=== PATIENT | female | born 1995 | race Caucasian/White ===

== ENCOUNTER 2018-06-01 22:48 | Emergency (ER) | END 2018-06-02 02:17 | disposition home or self-care (01) ==

== ENCOUNTER 2018-09-25 14:04 | Inpatient (IN) | payer OTHER ==
[~2018-09-25] VITALS: Ht 162.6 cm; Wt 84.6 kg
[2018-09-25] VITALS (25 sets, daily range): BP systolic 106–150; BP diastolic 38–90; PULSE 54–81; RESP 12–24; Ht 162.6 cm; Wt 84.6 kg
[2018-09-25] MEDS: LACTATED RINGER'S 1,000 ML IV SCH ×2 (06:00→18:21)
[2018-09-25] MEDS: SOD CHLORIDE 0.9% 1,000 ML IV SCH (06:00)
[~2018-09-25 14:04] MED LIST: ACET500C5 PO; ALBUTEROL INHALER; CEFAZOLIN 2 GM/50 ML (PMX) 50 ML (FOR WT < 120 KG) IVPB ONE; CEFAZOLIN 2 GM/50 ML (PMX) 50 ML IVPB ONE; CEPH-443 PO; GLYCOPYRROLATE 0.4 MG INJ ONE; IBUP800T48 PO; NEOSTIGMINE 10 MG INJ ONE; ONDA4TAB8 PO
[2018-09-25] MEDS ORDERED: ROCURONIUM 50 MG INJ ONE ×2 (14:10→16:48)
[2018-09-25] MEDS ORDERED: MIDAZOLAM 1 MG/ML 2 ML INJ ONE ×2 (14:10→16:48)
[2018-09-25] MEDS ORDERED: PROPOFOL 0 ML ONE (14:10)
[2018-09-25] MEDS ORDERED: FENTAnyl 50 MCG/ML VIAL ONE ×2 (14:10→16:51)
[2018-09-25] MEDS ORDERED: NORG1TAB15 PO (14:31)
--- NOTE | 2018-09-25 14:49 | PREAC ---
Date/Time of Note Date/Time of Note DATE: 09/25/18 TIME: 14:45 Anesthesia Eval and Record Evaluation Time Pre-Procedure Interview DATE: 09/25/18 TIME: 14:45 Age 23 Sex female NPO: 8 hrs Preoperative diagnosis Ectopic Planned procedure Exploratory Laparotomy and possible Salpingectomy right or left Past Medical History Past Medical History: Includes : : (2), Para: (1), Gestational age: Surgery & Anesthesia Issues No known issue Meds Anticoagulation: No Beta Franc within 24 hr: No Reason Beta Franc not given: Pt. not on B-Franc Reported Medications Norgestimate-Ethinyl Estradiol (Tri-Sprintec Tablet) 1 Each Tablet, 1 EACH PO DAILY, TAB 09/25/18 Discontinued Reported Medications [Albuterol Inhaler] No Conflict Check 11/14/10 Discontinued Scripts Ondansetron Hcl* (Zofran*) 4 Mg Tablet, 4 MG PO Q8H PRN for NAUSEA AND/OR VOMITING, #30 TAB Prov:ODILIAILAGUIDOULISESAR F 06/02/18 Acetaminophen* (Tylophen*) 500 Mg Capsule, 1 CAP PO Q6H PRN for PAIN AND OR ELEVATED TEMP, #20 CAP Prov:PASILABANULISESAR F 06/02/18 Ibuprofen* (Motrin*) 800 Mg Tab, 800 MG PO Q6H PRN for PAIN AND OR ELEVATED TEMP, #30 TAB Prov:ODILIAILABANULISESAR F 06/02/18 Cephalexin* (Keflex*) 500 Mg Capsule, 500 MG PO TID for 7 Days, CAP Prov:PASILABANULISESAR F 06/02/18 Current Medications Lactated Ringer's 1,000 ml @ 25 mls/hr Q24H IV ; Start 09/25/18 at 06:00 Sodium Chloride 1,000 ml @ 25 mls/hr Q24H IV ; Start 09/25/18 at 06:00 Meds reviewed: Yes Allergies Coded Allergies: No Known Allergies (Verified Allergy, Mild, 09/25/18) Allergies Reviewed: Yes Labs/Studies Labs Reviewed: Reviewed by anesthesiologist test: Positive Studies: ECG (n/a), CXR (n/a) Pre-procedure Exam Airway: Adequate mouth opening, Adequate thyromental dist Mallampati: Mallampati II Teeth: Normal Lung: Normal Heart: Normal ASA Physical Status ASA physical status: 2 Emergency: E Planned Anesthetic General/MAC: ETT Nerve block: TAP (bilateral) Planned Pain Management Single shot nerve block, Parenteral pain med Pre-operative Attestations Prior to commencing anesthesia and surgery, the patient was re-evaluated, there was verification of: *The patient's identity *The results of appropriate recent lab work and preoperative vital signs *The above evaluation not changing prior to induction *Anesthetic plan, risk benefits, alternative and complications discussed with patient/family; questions answered; patient/family understands, accepts and wishes to proceed. TATO MILES MD Sep 25, 2018 14:49
[2018-09-25] MEDS ORDERED: BUPIVACAINE 0.5%/EPI (SDV) 30 ML INJ ONE (15:51)
--- NOTE | 2018-09-25 15:59 | PREAC ---
Date/Time of Note Date/Time of Note DATE: 09/25/18 TIME: 15:55 Anesthesia Eval and Record Evaluation Time Pre-Procedure Interview DATE: 09/25/18 TIME: 15:55 Age 23 Sex female NPO: 8 hrs Preoperative diagnosis dermoid cyst Planned procedure LAPAROSCOPIC OVARIAN RIGHT CYSTECTOMY Past Medical History Past Medical History: Includes Pulm: Smoking Hx (2 days ago) GI: Obesity Recreational drugs: Marijuana (daily) Surgery & Anesthesia Issues No known issue Meds Anticoagulation: No Beta Franc within 24 hr: No Reason Beta Franc not given: Pt. not on B-Franc Reported Medications Norgestimate-Ethinyl Estradiol (Tri-Sprintec Tablet) 1 Each Tablet, 1 EACH PO DAILY, TAB 09/25/18 Discontinued Reported Medications [Albuterol Inhaler] No Conflict Check 11/14/10 Discontinued Scripts Ondansetron Hcl* (Zofran*) 4 Mg Tablet, 4 MG PO Q8H PRN for NAUSEA AND/OR VOMITING, #30 TAB Prov:ODILIAILABANULISESAR F 06/02/18 Acetaminophen* (Tylophen*) 500 Mg Capsule, 1 CAP PO Q6H PRN for PAIN AND OR ELEVATED TEMP, #20 CAP Prov:PASILABANULISESAR F 06/02/18 Ibuprofen* (Motrin*) 800 Mg Tab, 800 MG PO Q6H PRN for PAIN AND OR ELEVATED TEMP, #30 TAB Prov:PASILABAN,ULISESAR F 06/02/18 Cephalexin* (Keflex*) 500 Mg Capsule, 500 MG PO TID for 7 Days, CAP Prov:PASILABANULISESAR F 06/02/18 Current Medications Lactated Ringer's 1,000 ml @ 25 mls/hr Q24H IV ; Start 09/25/18 at 06:00 Sodium Chloride 1,000 ml @ 25 mls/hr Q24H IV ; Start 09/25/18 at 06:00 Meds reviewed: Yes Allergies Coded Allergies: No Known Allergies (Verified Allergy, Mild, 09/25/18) Allergies Reviewed: Yes Labs/Studies Labs Reviewed: Reviewed by anesthesiologist Result Diagram: 09/25/18 1442 09/25/18 1442 Laboratory Tests 09/25/18 14:42 test: Negative Pre-procedure Exam Last vitals Vital Signs Date Temp Pulse Resp B/P (MAP) Pulse Ox O2 O2 Flow FiO2 Time Delivery Rate 09/25/18 97.7 74 16 129/59 95 Room Air 15:07 (82) Airway: Adequate mouth opening Mallampati: Mallampati II Teeth: Normal Lung: Normal Heart: Normal ASA Physical Status ASA physical status: 2 Emergency: None Planned Anesthetic General/MAC: ETT Pre-operative Attestations Prior to commencing anesthesia and surgery, the patient was re-evaluated, there was verification of: *The patient's identity *The results of appropriate recent lab work and preoperative vital signs *The above evaluation not changing prior to induction *Anesthetic plan, risk benefits, alternative and complications discussed with patient/family; questions answered; patient/family understands, accepts and wishes to proceed. MEDARDO MC Sep 25, 2018 15:59
--- NOTE | 2018-09-25 16:07 | HP ---
Date/Time of Note Date/Time of Note DATE: 09/25/18 TIME: 16:04 Assessment/Plan VTE Prophylaxis Pharmacological prophylaxis: NA/contraindicated Pharm contraindication: low risk/ambulating Lines/Catheters [facility] Saline Lock Assessment/Plan Assessment/Plan 4.2 cm right ovarian cyst which was diagnosed to be dermoid by MRI and CT scan Patient is going to have laparotomy and removal of the right ovarian cyst Result Diagram: 09/25/18 1442 09/25/18 1442 Results 24hrs Laboratory Tests Test 09/25/18 14:42 White Blood Count 8.6 # Red Blood Count 4.49 Hemoglobin 13.6 Hematocrit 40.9 Mean Corpuscular Volume 91.1 Mean Corpuscular Hemoglobin 30.3 Mean Corpuscular Hemoglobin Concent 33.3 Red Cell Distribution Width 12.5 Platelet Count 282 Mean Platelet Volume 10.4 Immature Granulocytes % 0.500 H Neutrophils % 67.0 Lymphocytes % 25.0 Monocytes % 5.8 Eosinophils % 1.2 Basophils % 0.5 Nucleated Red Blood Cells % 0.0 Immature Granulocytes # 0.040 H Neutrophils # 5.7 Lymphocytes # 2.1 Monocytes # 0.5 Eosinophils # 0.1 Basophils # 0.0 Nucleated Red Blood Cells # 0.0 Prothrombin Time 11.7 L Prothrombin Time Ratio 0.9 INR International Normalized Ratio 0.85 Activated Partial Thromboplast Time 26.6 Sodium Level 140 Potassium Level 4.0 Chloride Level 106 Carbon Dioxide Level 26 Anion Gap 8 Blood Urea Nitrogen 11 Creatinine 0.59 Glucose Level 85 Calcium Level 9.2 Phosphorus Level 3.2 Albumin 4.0 HPI/ROS Admit Date/Time Admit Date/Time 09/25/2008 Hx of Present Illness 23-year-old female para 0 last. 09/06/2018 admitted because of finding of a 4.2 cm right ovarian dermoid Patient is consented for removal of a dermoid cyst via laparotomy ROS Patient is mild right lower quadrant pain Constitutional: no complaints, improved Eyes: no complaints ENT: no complaints Respiratory: no complaints Cardiovascular: no complaints Gastrointestinal: no complaints Genitourinary: no complaints Musculoskeletal: no complaints Skin: no complaints Neurologic: no complaints Endocrine: no complaints Lymphatic: no complaints Psychological: no complaints, nl mood/affect Immunologic: no complaints PMH/Family/Social Past Medical History Medical History: no pertinent history Medications Current Medications Lactated Ringer's 1,000 ml @ 25 mls/hr Q24H IV ; Start 09/25/18 at 06:00 Sodium Chloride 1,000 ml @ 25 mls/hr Q24H IV ; Start 09/25/18 at 06:00 Coded Allergies: No Known Allergies (Verified Allergy, Mild, 09/25/18) Past Surgical History Past Surgical Hx: no surgical history Family History Significant Family History: no pertinent family hx Social History Smoking Status: Current some day smoker (Smokes marijuana) Drug Use: marijuana Exam/Review of Systems Vital Signs Vitals Vital Signs Date Temp Pulse Resp B/P (MAP) Pulse Ox O2 O2 Flow FiO2 Time Delivery Rate 09/25/18 97.7 74 16 129/59 95 Room Air 15:07 (82) Exam Exam 23-year-old female with mild lower abdominal pain Constitutional: alert, oriented, well developed Psych: no complaints, nl mood/affect Head: normocephalic, atraumatic Eyes: nl conjunctiva, EOMI, nl lids, nl sclera, PERRL ENMT: nl external ears & nose, nl lips & teeth, nl nasal mucosa & septum Neck: supple, non-tender Respiratory: clear to auscultation, normal air movement Cardiovascular: regular rate and rhythm, nl pulses Gastrointestinal: soft, nl liver, spleen, non-tender Genitourinary - Female: other (Has a 4.2 cm right ovarian cyst by MRI) Musculoskeletal: nl extremities to inspection Extremities: normal pulses 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
[2018-09-25] MEDS ORDERED: LIDOCAINE 2% (SDV) 5 ML INJ ONE (16:48)
[2018-09-25] MEDS ORDERED: PROPOFOL 20 ML ONE (16:48)
[2018-09-25] MEDS ORDERED: ROPIVACAINE 0.5 % 30 ML VIAL ONE (16:48)
[2018-09-25] MEDS ORDERED: CEFAZOLIN 1 GM INJ ONE (17:17)
[2018-09-25] MEDS ORDERED: DEXAMETHASONE 4 MG/ML 5 ML INJ ONE (17:18)
[2018-09-25] MEDS ORDERED: ONDANSETRON 4 MG INJ ONE (17:18)
[2018-09-25] MEDS ORDERED: FAMOTIDINE 20 MG INJ ONE (17:18)
[2018-09-25] MEDS ORDERED: HYDROmorphONE 2 MG/ML SYG ONE (17:18)
[2018-09-25] MEDS ORDERED: HYDROmorphONE 1 MG/5 ML IV SYRINGE IV PRN ×3 (18:00)
[2018-09-25] MEDS ORDERED: FENTAnyl 50 MCG/ML VIAL IV PRN ×3 (18:00)
[2018-09-25] MEDS ORDERED: HYDROmorphONE 0.5 MG/0.5 ML SYG IV PRN ×2 (18:00)
[2018-09-25] MEDS ORDERED: DIPHENHYDRAMINE 50 MG INJ IV PRN ×2 (18:00)
[2018-09-25] MEDS ORDERED: KETOROLAC 30 MG INJ IV PRN (18:00)
[2018-09-25] MEDS ORDERED: ONDANSETRON 4 MG INJ IV PRN (18:00)
[2018-09-25] MEDS ORDERED: MEPERIDINE 25 MG INJ IV PRN (18:00)
[2018-09-25] MEDS ORDERED: PROCHLORPERAZINE 10 MG INJ IV PRN (18:00)
[2018-09-25] MEDS ORDERED: NALOXONE (0.4 MG/ML) INJ IV PRN (18:00)
[2018-09-25] MEDS ORDERED: KETOROLAC 30 MG INJ ONE (18:16)
[2018-09-25] MEDS ORDERED: KETOROLAC 60 MG INJ IM STA (18:21)
[2018-09-25] MEDS ORDERED: BUTORPHANOL 2 MG INJ IM ONE (18:30)
[2018-09-25] MEDS ORDERED: KETOROLAC 30 MG INJ IM STA (18:48)
--- NOTE | 2018-09-25 18:50 | PAC ---
Date/Time of Note Date/Time of Note DATE: 09/25/18 TIME: 18:49 Post-Anesthesia Notes Post-Anesthesia Note Last documented vital signs Vital Signs Date Temp Pulse Resp B/P (MAP) Pulse Ox O2 O2 Flow FiO2 Time Delivery Rate 09/25/18 99.0 18:28 09/25/18 74 16 129/59 95 Room Air 15:07 (82) Activity: WNL Respiratory function: WNL Cardiovascular function: WNL Mental status: Baseline Pain reasonably controlled: Yes Hydration appropriate: Yes Nausea/Vomiting absent: Yes Comments BP: 106/48 HR: 60 RR: 15 T: 98 SaO2: 100% EDIS WOODRUFF MD Sep 25, 2018 18:50
[2018-09-25] MEDS: ONDANSETRON 4 MG INJ IV PRN (18:54)
--- NOTE | 2018-09-25 18:58 | OPR ---
Operative Report Planned Procedure Procedure date Sep 25, 2018 Procedure(s) Laparotomy and right ovarian cystectomy Performed by see signature line Anesthesiologist: EDIS WOODRUFF MD Pre-procedure diagnosis Right ovarian dermoid [id number] Anesthesia Type: [id number] general Post-Procedure Post-procedure diagnosis Status post right ovarian cystectomy Findings 4 5 cm right ovarian cyst Sebaceous material extruding from the cyst wall Appearing the left ovary normal-appearing right and left fallopian tubes and ovaries Estimated Blood Loss: 0 - 10 mls Specimen(s) Right ovarian cyst wall Grafts/Implant(s) none Complication(s) none Pt Condition post procedure: stable Disposition: PACU Procedure Description Under satisfactory anaesthesia a Pfannenstiel incision was made two fingerbreadth above and parallel to the symphysis of pubis. Incision was extended laterally to 4 5 cm lateral to linea nigra on either sides. Incision was carried down with sharp and blunt dissection until fascia was reached. Anterior Recti muscle fascia was incised in mid portion and incision extended laterally to the border of skin incision. Fascia was mobilized from muscle superiorly and Recti muscles were from midline using sharp and blunt dissection. Peritoneum was visualized; Avoiding bowel and bladder it was incised . Incision was extended superiorly and inferiorly. Uterus was brought up to the operative field. Both ovaries and fallopian tubes were clearly visualized. Left ovary and left fallopian tubes appear normal as well as the right fallopian tube. A 5 cm ovarian cyst on the left side was clearly visualized. Then dependent portion of the ovary was brought up to the surface and the right ovary was totally isolated from intra-abdominal organs. A 1 or 1-1/2 cm incision was made on the dependent portion of ovary however this cyst was inadvertently entered. Sebaceous yellowish and particulate material was extruding from the incision site and ovary. Serious care was taken to avoid contact of a sebaceous material without rub abdominal organs. After warts cyst wall was inoculated from its base and was removed successfully. Specimen was sent for pathology, Hemostasis in the base of the cyst was secured using Bovie cautery and hemostasis became complete. Surgicel was placed in the defect area of the ovary and after irrigation ovary was returned to the abdominal cavity. Hemostasis appeared to be secure. Announcing needle, lap sponge and instrument count to be correct abdomen was closed in layers as follows: Peritoneum and Recti muscles with running stitches of 2-0 Vicryl. Fascia with running stitch of No 1 PDS. Subcutaneous tissue with running stitches of 2-0 Chromic and skin was closed using harrison. Patient tolerated the procedure well and was transferred to [facility] in good condition. Estimated blood loss was less than 10 cc ROGERS VILLAR MD Sep 25, 2018 18:57
[2018-09-25] MEDS: HYDROmorphONE 0.2 MG/ML PCA IV SCH (19:15)
[2018-09-26] VITALS: BP 121/58; PULSE 96; RESP 18
[2018-09-26] MEDS: LACTATED RINGER'S 1,000 ML IV SCH ×5 (04:21→19:13)
[2018-09-26] MEDS: SOD CHLORIDE 0.9% 1,000 ML IV SCH (06:00)
[2018-09-26] MEDS ORDERED: PROPOFOL 200 MG INJ ONE (07:00)
[2018-09-26 07:43] VITALS: BP 123/67; PULSE 69; RESP 18
[2018-09-26] MEDS: HYDROmorphONE 0.2 MG/ML PCA IV SCH ×2 (07:55→15:42)
[2018-09-26] MEDS: ONDANSETRON 4 MG INJ IV PRN ×3 (08:39→20:52)
[2018-09-26] MEDS ORDERED: HYDROCODONE/APAP (10/325) TAB PO PRN (09:30)
[2018-09-26] MEDS ORDERED: OXYCODONE/ACETAMINOPHEN (5/325) TAB PO PRN (09:30)
[2018-09-26] MEDS ORDERED: MAGNESIUM HYDROXIDE 30ML CUP PO PRN (09:30)
[2018-09-26] MEDS: IBUPROFEN 600 MG TAB PO SCH ×3 (10:18→20:52)
[2018-09-26] MEDS: SENNA TAB PO SCH ×2 (10:18→20:51)
[2018-09-26] MEDS ORDERED: CEFAZOLIN 2 GM/50 ML (PMX) 50 ML IVPB SCH ×3 (10:30→22:00)
[2018-09-26] MEDS ORDERED: BISACODYL 10 MG SUPP PR ONE (10:30)
[2018-09-26] MEDS: CLINDAMYCIN 300 MG CAP PO SCH ×3 (11:11→20:52)
[2018-09-26 14:00] VITALS: BP 120/61; PULSE 72; RESP 18
--- NOTE | 2018-09-26 18:12 | PN ---
Date/Time of Note Date/Time of Note DATE: 09/26/18 TIME: 18:11 Assessment/Plan VTE Prophylaxis VTE Prophylaxis Intervention: ambulation Lines/Catheters IV Catheter Type (from Nrsg): Peripheral IV Assessment/Plan Assessment/Plan Postop day #1 status post dermoid cyst removal and laparotomy Patient with high white counts we will continue antibiotics IV and p.o. repeat CBC following day Modify pain medications Continue to observe patient in house Subjective 24 Hr Interval Summary Passing flatus but no bowel movement Suppository Constitutional: no complaints, improved, ambulates, BM, flatus, urine output Pain Control: well controlled Exam/Review of Systems Vital Signs Vitals Vital Signs Date Temp Pulse Resp B/P (MAP) Pulse Ox O2 O2 Flow FiO2 Time Delivery Rate 09/26/18 18 17:00 09/26/18 97.7 69 123/67 99 Room Air 07:43 (85) 09/25/18 3.0 21:30 Intake and Output 09/25/18 09/25/18 09/26/18 1515:00 23:00 07:00 IntakeIntake Total 1700 ml 300 ml OutputOutput Total 205 ml BalanceBalance 1495 ml 300 ml Exam Free Text/Dictation Abdomen is soft with tenderness in lower abdomen Incision is covered Constitutional: alert, oriented, well developed Psych: no complaints, nl mood/affect Head: normocephalic, atraumatic Eyes: nl conjunctiva, EOMI, nl lids, nl sclera ENMT: nl external ears & nose, nl lips & teeth, nl nasal mucosa & septum, mucosa pink and moist Neck: supple, non-tender Respiratory: clear to auscultation, normal air movement Cardiovascular: regular rate and rhythm, nl pulses Gastrointestinal: soft, nl liver, spleen, non-tender Musculoskeletal: nl extremities to inspection, nl gait and stance Extremities: normal pulses Neurological: MANAGER CARGO II-XII intact, nl mental status, nl speech, nl strength Skin: nl turgor, rash or lesions Lymph: nl lymph nodes Results Result Diagram: 09/26/18 0956 09/25/18 1442 ROGERS VILLAR MD Sep 26, 2018 18:12
[2018-09-26] MEDS: CIPROFLOXACIN 500 MG TAB PO SCH (18:16)
[2018-09-26] MEDS: HYDROCODONE/APAP (5/325) TAB PO PRN (18:16)
[2018-09-26 19:15] VITALS: BP 134/66; PULSE 58; RESP 16
[2018-09-26] MEDS: CEFAZOLIN 2 GM/50 ML (PMX) 50 ML IVPB SCH (21:20)
[2018-09-27 02:10] VITALS: BP 105/52; PULSE 57; RESP 16
[2018-09-27] MEDS: CLINDAMYCIN 300 MG CAP PO SCH ×4 (03:19→20:29)
[2018-09-27] MEDS: IBUPROFEN 600 MG TAB PO SCH ×4 (03:20→20:30)
[2018-09-27] MEDS: LACTATED RINGER'S 1,000 ML IV SCH ×3 (05:13→20:32)
[2018-09-27] MEDS: CIPROFLOXACIN 500 MG TAB PO SCH ×2 (05:40→17:22)
[2018-09-27] MEDS: CEFAZOLIN 2 GM/50 ML (PMX) 50 ML IVPB SCH (05:41)
[2018-09-27 07:54] VITALS: BP 99/59; PULSE 79; RESP 18
[2018-09-27] MEDS: HYDROCODONE/APAP (5/325) TAB PO PRN ×2 (09:08→13:46)
[2018-09-27] MEDS: SENNA TAB PO SCH ×2 (09:09→20:28)
[2018-09-27 15:31] VITALS: BP 104/81; PULSE 80; RESP 18
[2018-09-27] MEDS ORDERED: BISACODYL 10 MG SUPP PR ONE (16:00)
[2018-09-27] MEDS: OXYCODONE/ACETAMINOPHEN (5/325) TAB PO PRN ×2 (17:28→21:20)
--- NOTE | 2018-09-27 19:07 | PN ---
Date/Time of Note Date/Time of Note DATE: 09/27/18 TIME: 19:05 Assessment/Plan VTE Prophylaxis VTE Prophylaxis Intervention: ambulation Lines/Catheters IV Catheter Type (from Nrsg): Peripheral IV Assessment/Plan Assessment/Plan Status post ovarian cystectomy via minilaparotomy postop day #2 We will advance diet and continue to monitor vital signs Continue p.o. antibiotics Repeat CBC following day Subjective 24 Hr Interval Summary No bowel movement but passing flatus Constitutional: no complaints, improved, ambulates, BM, flatus, urine output Pain Control: well controlled Exam/Review of Systems Vital Signs Vitals Vital Signs Date Temp Pulse Resp B/P (MAP) Pulse Ox O2 O2 Flow FiO2 Time Delivery Rate 09/27/18 98.0 80 18 104/81 94 Room Air 15:31 (89) 09/25/18 3.0 21:30 Intake and Output 09/26/18 09/26/18 09/27/18 1515:00 23:00 07:00 IntakeIntake Total 50 ml 650 ml 50 ml BalanceBalance 50 ml 650 ml 50 ml Exam Free Text/Dictation Abdomen is soft and nontender with present bowel sounds and abdomen does not seem distended Incision is healing well without induration and or erythema Constitutional: alert, oriented, well developed Psych: no complaints, nl mood/affect Head: normocephalic, atraumatic Eyes: nl conjunctiva, EOMI, nl lids, nl sclera ENMT: nl external ears & nose, nl lips & teeth, nl nasal mucosa & septum, mucosa pink and moist Neck: supple, non-tender Respiratory: clear to auscultation, normal air movement Cardiovascular: regular rate and rhythm, nl pulses Gastrointestinal: soft, nl liver, spleen, non-tender Musculoskeletal: nl extremities to inspection, nl gait and stance Extremities: normal pulses 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
[2018-09-27 19:35] VITALS: BP 115/56; PULSE 64; RESP 20
[2018-09-28 01:04] VITALS: BP 105/60; PULSE 80; RESP 19
[2018-09-28] MEDS: OXYCODONE/ACETAMINOPHEN (5/325) TAB PO PRN ×4 (01:24→17:08)
[2018-09-28] MEDS: CLINDAMYCIN 300 MG CAP PO SCH ×3 (03:18→15:19)
[2018-09-28] MEDS: IBUPROFEN 600 MG TAB PO SCH ×3 (03:19→15:19)
[2018-09-28] MEDS: CIPROFLOXACIN 500 MG TAB PO SCH ×2 (05:25→17:37)
[2018-09-28] MEDS: LACTATED RINGER'S 1,000 ML IV SCH ×2 (05:28→16:51)
[2018-09-28 08:30] VITALS: BP 127/62; PULSE 81; RESP 18
[2018-09-28] MEDS: SENNA TAB PO SCH (09:04)
[2018-09-28] MEDS: HYDROCODONE/APAP (5/325) TAB PO PRN (10:48)
[2018-09-28] MEDS: ONDANSETRON 4 MG INJ IV PRN (11:46)
[2018-09-28 15:29] VITALS: BP 122/58; PULSE 83; RESP 18
--- NOTE | 2018-09-28 16:29 | DS ---
Date/Time of Note Date/Time of Note DATE: 09/28/18 TIME: 16:28 Discharge Summary Admission/Discharge Info Admit Date/Time Sep 25, 2018 at 18:53 Discharge Date/Time 09/28/2018 Discharge Diagnosis Status post right ovarian cystectomy Patient Condition: Good Procedures Right ovarian cystectomy and mini laparotomy Hx of Present Illness 23-year-old female para 0 last. 09/06/2018 admitted because of finding of a 4.2 cm right ovarian dermoid Patient is consented for removal of a dermoid cyst via laparotomy Hospital Course Hospital course remained uncomplicated Home Meds Reported Medications Norgestimate-Ethinyl Estradiol (Tri-Sprintec Tablet) 1 Each Tablet, 1 EACH PO D AILY, TAB 09/25/18 Discontinued Reported Medications [Albuterol Inhaler] No Conflict Check 11/14/10 Discontinued Scripts Ondansetron Hcl* (Zofran*) 4 Mg Tablet, 4 MG PO Q8H PRN for NAUSEA AND/OR VOMITING, #30 TAB Prov:MERYL CRUZ 06/02/18 Acetaminophen* (Tylophen*) 500 Mg Capsule, 1 CAP PO Q6H PRN for PAIN AND OR ELEVATED TEMP, #20 CAP Prov:ODILIAILAMERYL LORA F 06/02/18 Ibuprofen* (Motrin*) 800 Mg Tab, 800 MG PO Q6H PRN for PAIN AND OR ELEVATED TEMP, #30 TAB Prov:ODILIAILAMERYL LORA F 06/02/18 Cephalexin* (Keflex*) 500 Mg Capsule, 500 MG PO TID for 7 Days, CAP Prov:PASILAMERYL LORA F 06/02/18 Follow-up Plan 3 4 days in clinic for staple removal Primary Care Provider Not On Staff Doctor Time spent on discharge: > 30 minutes Pending Labs Laboratory Tests Test 09/28/18 04:31 White Blood Count 8.8 10^3/ul (4.8-10.8) Red Blood Count 4.02 10^6/ul (4.20-5.40) Hemoglobin 12.1 g/dl (12.0-16.0) Hematocrit 37.0 % (37.0-47.0) Mean Corpuscular Volume 92.0 fl (82.0-101.0) Mean Corpuscular Hemoglobin 30.1 pg (29.0-33.0) Mean Corpuscular Hemoglobin Concent 32.7 g/dl (32.0-37.0) Red Cell Distribution Width 12.8 % (11.5-14.5) Platelet Count 241 10^3/UL (140-415) Mean Platelet Volume 10.7 fl (7.4-10.4) Immature Granulocytes % 0.300 % (0.001-0.429) Neutrophils % 59.1 % (39.0-77.0) Lymphocytes % 27.7 % (15.0-51.0) Monocytes % 10.1 % (0.0-11.0) Eosinophils % 2.5 % (0.0-7.0) Basophils % 0.3 % (0.0-2.0) Nucleated Red Blood Cells % 0.0 /100WBC (0.0-0.0) Immature Granulocytes # 0.030 10^3/ul (0.0-0.031) Neutrophils # 5.2 10^3/ul (1.6-7.5) Lymphocytes # 2.5 10^3/ul (0.8-2.9) Monocytes # 0.9 10^3/ul (0.3-0.9) Eosinophils # 0.2 10^3/ul (0.0-0.5) Basophils # 0.0 10^3/ul (0.0-0.1) Nucleated Red Blood Cells # 0.0 10^3/ul (0.0-0.0) ROGERS VILLAR MD Sep 28, 2018 16:29
--- NOTE | 2018-09-28 18:05 | PD.PPDC ---
BLANKET BINDER Discharge Instruction Provider Information Physician Information 24-year-old female had ovarian cystectomy Diagnosis [id number] Final Diagnosis: [id number] Status post mini lap and ovarian cystectomy Condition [id number] Patient Condition: [id number] Good Diet [id number] Diet: Gsvfv7m Resume Regular Diet Activity/Restrictions [id number] Activity: Yexwe3f May Shower [id number] Restrictions: [id number] No Exercising No Lifting Nothing in the Vagina [id number] Return to Work or School: Kyqkx7r November 19, 2018 Follow-up Follow-up with Physician: 3, 4, Day/Days (In clinic for staple removal) Return to clinic for [id number] PHARMACY ACCOUNT DIRECTOR Instructions: Hucqx9g Fever greater than 101 Chills Worsening abdominal pain Excessive Vaginal Bleeding [id number] Surgical Instructions: [id number] Incisional Drainage Incisional Redness ROGERS VILLAR MD Sep 28, 2018 18:05
[2018-09-28] MEDS ORDERED: IBUP-1542 PO (18:09)
[2018-09-28] MEDS ORDERED: ACET325T33 PO (18:09)
[2018-09-28] MEDS ORDERED: ACETAMINOPHEN 325 MG TAB PO SCH (18:30)
== END 2018-09-28 19:20 | disposition home or self-care (01) | DRG 743 ==
LOC: SDS 14:04 → REC 18:53 → MS1 20:40
PROVIDERS: ADMIT Obstetrics & Gynecology; ATTEND Obstetrics & Gynecology
PROC: 0UB00ZZ Excision of Right Ovary, Open Approach (ICD-10-PCS; principal; 2018-09-25 16:00)
DX: D27.0 Benign neoplasm of right ovary (principal); E66.9 Obesity, unspecified; Z68.32 Body mass index [BMI] 32.0-32.9, adult; F17.200 Nicotine dependence, unspecified, uncomplicated
CPT/HCPCS: 80069; 84703; 85025; 85610; 85730; 88305; J0595; J0690; J1100; J1170; J1885; J2175; J2250; J2405; J2710; J2795; J3010; J7030; J7120

== ENCOUNTER 2018-11-04 16:44 | Emergency (ER) | payer SELFPAY ==
[~2018-11-04] VITALS: Wt 89.0 kg
[~2018-11-04 16:44] MED LIST changes: +ACET325T33 PO; -ACET500C5 PO; -ALBUTEROL INHALER; -CEFAZOLIN 2 GM/50 ML (PMX) 50 ML (FOR WT < 120 KG) IVPB ONE; -CEFAZOLIN 2 GM/50 ML (PMX) 50 ML IVPB ONE; -CEPH-443 PO; -GLYCOPYRROLATE 0.4 MG INJ ONE; +IBUP-1542 PO; -IBUP800T48 PO; -NEOSTIGMINE 10 MG INJ ONE; +NORG1TAB15 PO; -ONDA4TAB8 PO
[2018-11-04] MEDS ORDERED: FAMOTIDINE 20 MG INJ IV STA (17:28)
[2018-11-04] MEDS ORDERED: ONDANSETRON 4 MG INJ IV STA (17:28)
[2018-11-04] MEDS ORDERED: SOD CHLORIDE 0.9% 1,000 ML IV STA (17:28)
--- NOTE | 2018-11-04 17:28 | ERD ---
ER Documentation Chief Complaint Chief Complaint AP WITH VOMITING SINCE YESTERDAY HPI 23-year-old female, presents the emergency department, complaining of acute onset of colicky abdominal pain associated with nausea, vomiting and watery diarrhea more than 6 times after eating [place] food. The patient also reports subjective fever, no other sick contacts. No rashes, no headache, she denies urinary symptoms. ROS All systems reviewed and are negative except as per history of present illness. Medications Home Meds Active Scripts Ondansetron Hcl* (Zofran*) 4 Mg Tablet, 4 MG PO Q6H for NAUSEA AND/OR VOMITING, #12 TAB Prov:DEVYN HARRISON MD 11/04/18 Hydrocodone/Acetaminophen ([place] 5-325 Tablet) 1 Each Tablet, 1 TAB PO Q6H PRN for PAIN, #7 TAB Prov:DEVYN HARRISON MD 11/04/18 Ciprofloxacin Hcl* (Ciprofloxacin Hcl*) 250 Mg Tablet, 250 MG PO BID, #10 TAB Prov:DEVYN HARRISON MD 11/04/18 Ibuprofen* (Ibuprofen*) 600 Mg Tablet, 600 MG PO Q6H, #60 TAB 0 Refills Prov:ROGERS VILLAR MD 09/28/18 Acetaminophen* (Tylenol*) 325 Mg Tablet, 650 MG PO Q6H, #60 TAB 0 Refills Prov:ROGERS VILLAR MD 09/28/18 Reported Medications Norgestimate-Ethinyl Estradiol (Tri-Sprintec Tablet) 1 Each Tablet, 1 EACH PO DAILY, TAB 09/25/18 Allergies Allergies: Coded Allergies: No Known Allergies (Verified Allergy, Mild, 09/25/18) PMhx/Soc History of Surgery: No Anesthesia Reaction: No Hx Neurological Disorder: No Hx Respiratory Disorders: No Hx Cardiac Disorders: No Hx Psychiatric Problems: No Hx Miscellaneous Medical Probl: No Hx Alcohol Use: No Hx Substance Use: Yes (marijuana) Hx Tobacco Use: Yes Smoking Status: Current every day smoker FmHx Family History: No diabetes, No coronary disease Physical Exam Vitals Vital Signs Date Temp Pulse Resp B/P (MAP) Pulse Ox O2 O2 Flow FiO2 Time Delivery Rate 11/04/18 86 18 114/56 98 Room Air 19:43 (75) 11/04/18 97.9 99 18 150/89 99 16:46 (109) Physical Exam Const: No acute distress Head: Atraumatic Eyes: Normal Conjunctiva ENT: Normal External Ears, Nose and Mouth. Neck: Full range of motion. No meningismus. Resp: Clear to auscultation bilaterally Cardio: Regular rate and rhythm, no murmurs Abd: Soft, non tender, non distended. Normal bowel sounds Skin: No petechiae or rashes Back: No midline or flank tenderness Ext: No cyanosis, or edema Neur: Awake and alert Psych: Normal Mood and Affect Result Diagram: 11/04/18 1744 11/04/18 1744 Results 24 hrs Laboratory Tests Test 11/04/18 17:44 White Blood Count 13.7 10^3/ul Red Blood Count 5.29 10^6/ul Hemoglobin 16.0 g/dl Hematocrit 47.3 % Mean Corpuscular Volume 89.4 fl Mean Corpuscular Hemoglobin 30.2 pg Mean Corpuscular Hemoglobin Concent 33.8 g/dl Red Cell Distribution Width 12.9 % Platelet Count 293 10^3/UL Mean Platelet Volume 10.3 fl Immature Granulocytes % 0.700 % Neutrophils % 89.7 % Lymphocytes % 4.4 % Monocytes % 4.4 % Eosinophils % 0.6 % Basophils % 0.2 % Nucleated Red Blood Cells % 0.0 /100WBC Immature Granulocytes # 0.090 10^3/ul Neutrophils # 12.3 10^3/ul Lymphocytes # 0.6 10^3/ul Monocytes # 0.6 10^3/ul Eosinophils # 0.1 10^3/ul Basophils # 0.0 10^3/ul Nucleated Red Blood Cells # 0.0 10^3/ul Urine Color YELLOW Urine Clarity SLIGHTLY CLOUDY Urine pH 6.0 Urine Specific [place] 1.028 Urine Ketones 2+ mg/dL Urine Nitrite NEGATIVE mg/dL Urine Bilirubin NEGATIVE mg/dL Urine Urobilinogen NEGATIVE mg/dL Urine Leukocyte Esterase 2+ Frandy/ul Urine Microscopic RBC 9 /HPF Urine Microscopic WBC 1 /HPF Urine Squamous Epithelial Cells MODERATE /HPF Urine Mucus FEW /HPF Urine Hemoglobin 1+ mg/dL Urine Glucose NEGATIVE mg/dL Urine Total Protein NEGATIVE mg/dl Urine Test NEGATIVE Sodium Level 140 mmol/L Potassium Level 4.2 mmol/L Chloride Level 103 mmol/L Carbon Dioxide Level 25 mmol/L Anion Gap 12 Blood Urea Nitrogen 17 mg/dl Creatinine 0.64 mg/dl Est Glomerular Filtrat Rate mL/min > 60 mL/min Glucose Level 108 mg/dl Calcium Level 9.5 mg/dl Total Bilirubin 1.2 mg/dl Direct Bilirubin 0.00 mg/dl Indirect Bilirubin 1.2 mg/dl Aspartate Amino Transf (AST/SGOT) 28 IU/L Alanine Aminotransferase (ALT/SGPT) 24 IU/L Alkaline Phosphatase 123 IU/L Total Protein 7.5 g/dl Albumin 4.3 g/dl Globulin 3.20 g/dl Albumin/Globulin Ratio 1.34 Lipase 52 U/L Current Medications Medications Dose Sig/Lizandro Start Time Status Last (Trade) Ordered Route PRN Stop Time Admin Dose Reason Admin Sodium 1,000 ml @ Q1H STAT 11/04/18 DC 11/04/18 Chloride 1,000 mls/hr IV 17:28 11/04/18 17:53 18:27 Ondansetron 4 mg ONCE STAT 11/04/18 DC 11/04/18 HCl (Zofran IV 17:28 11/04/18 17:54 Inj) 17:31 Famotidine 20 mg ONCE STAT 11/04/18 DC 11/04/18 (Pepcid Iv) IV 17:28 11/04/18 17:54 17:31 650 mg ONCE ONCE 11/04/18 DC 11/04/18 Acetaminophen PO 17:30 11/04/18 17:54 (Tylenol 17:31 Tab) Ibuprofen 400 mg ONCE ONCE 11/04/18 DC 11/04/18 (Motrin) PO 17:30 11/04/18 17:54 17:31 250 mg ONCE ONCE 11/04/18 DC 11/04/18 Ciprofloxacin PO 19:30 11/04/18 19:36 (Cipro) 19:31 1 tab ONCE ONCE 11/04/18 DC 11/04/18 Acetaminophen PO 19:30 11/04/18 19:31 / 19:31 Hydrocodone Bitart ([place] (5/325)) Ondansetron 4 mg ONCE STAT 11/04/18 DC 11/04/18 HCl (Zofran ODT 19:19 11/04/18 19:31 Odt) 19:22 Procedures/MDM Differential diagnosis include but not limited to: UTI, colitis, ga stroenteritis, kidney stones, irritable bowel syndrome, inflammatory bowel syndrome, malabsorption syndrome, cholelithiasis, food intolerance, medication side effect, pancreatitis, diverticulitis, bowel obstruction. Low suspicion for acute abdomen Physical examination and clinical presentation consistent most likely with acute gastroenteritis, most likely food poisoning and incidental finding of urinary tract infection. During the ED course the patient remained stable, no new complaints. Results and clinical impression discussed with patient who agrees with management. The patient is stable to be treated outpatient and will be discharged home, some side effects of prescribed medications (headache, rash, nausea, vomiting, diarrhea, drowsiness, habituation, bleeding, hypertension, interactions with other medications) were reviewed. The patient was instructed to follow up with the primary care provider in the next 48h. If symptoms persist, worsen or new symptoms develop, then patient should return to the ED immediately. Instructions explained and given directly by me to the patient with acknowledgment and demonstrated understanding. Disclaimer: Inadvertent spelling and grammatical errors are likely due to EHR/dictation software use and do not reflect on the overall quality of patient care. Also, please note that the electronic time recorded on this note does not necessarily reflect the actual time of the patient encounter. Departure Diagnosis: Primary Impression: Acute gastroenteritis Additional Impression: Urinary tract infection Condition: Stable Additional Instructions: Thank you very much for allowing us to participate in your care. Your health and safety is our top priority at [facility]. The evaluation in the emergency department has been done to rule out an acute emergency, therefore, chronic conditions like malignancy or other diseases have not been evaluated; therefore, you need to follow up with a primary care provider in the next 48h. If symptoms persist, worsen or new symptoms develop, then patient should return to the ED immediately. Call your primary care doctor TOMORROW for an appointment during the next 2-4 days and bring all the information provided. Have prescriptions filled and follow precisely the directions on the label. If the symptoms get worse and your provider is unavailable, return to the Emergency Department immediately. DEVYN HARRISON MD November 04, 2018 17:28
[2018-11-04] MEDS ORDERED: IBUPROFEN 200 MG TAB PO ONE (17:30)
[2018-11-04] MEDS ORDERED: ACETAMINOPHEN 325 MG TAB PO ONE (17:30)
[2018-11-04] MEDS ORDERED: ONDANSETRON (ODT) 4 MG TAB ODT STA (19:19)
[2018-11-04] MEDS ORDERED: ONDA4TAB8 PO (19:25)
[2018-11-04] MEDS ORDERED: CIPR-193 PO (19:25)
[2018-11-04] MEDS ORDERED: HYDR-4011 PO (19:25)
[2018-11-04] MEDS ORDERED: CIPROFLOXACIN 250 MG TAB PO ONE (19:30)
[2018-11-04] MEDS ORDERED: HYDROCODONE/APAP (5/325) TAB PO ONE (19:30)
[2018-11-04 19:43] VITALS: BP 114/56; PULSE 86; RESP 18
== END 2018-11-04 19:46 | disposition home or self-care (01) ==
LOC: FTE 16:44
DX: K52.9 Noninfective gastroenteritis and colitis, unspecified (principal); N39.0 Urinary tract infection, site not specified; F17.210 Nicotine dependence, cigarettes, uncomplicated
CPT/HCPCS: 36415; 80053; 81001; 83690; 84703; 85025; 96361; 96374; 96375; 99284; J2405; J7030

== ENCOUNTER 2019-03-02 13:36 | Emergency (ER) | payer OTHER ==
[~2019-03-02] VITALS: Ht 165.1 cm; Wt 85.0 kg
[~2019-03-02 13:36] MED LIST changes: +CIPR-193 PO; +HYDR-4011 PO; +IBUP800T48 PO; +ONDA4TAB8 PO
[2019-03-02 13:48] VITALS: BP 142/88; PULSE 64; RESP 16; Ht 165.1 cm; Wt 85.0 kg
[2019-03-02] MEDS ORDERED: ONDANSETRON 4 MG INJ IV STA (15:22)
[2019-03-02] MEDS ORDERED: morphine 2 MG INJ IV STA (15:22)
[2019-03-02] MEDS ORDERED: SOD CHLORIDE 0.9% 1,000 ML IV STA (15:22)
== END 2019-03-02 17:13 | disposition home or self-care (01) ==
LOC: FTE 13:36
DX: R10.2 Pelvic and perineal pain (principal); F17.210 Nicotine dependence, cigarettes, uncomplicated
CPT/HCPCS: 36415; 76856; 80053; 81001; 81025; 83690; 84702; 85025; 96361; 96374; 96375; J2270; J2405; J7030; Z7502